=== PATIENT | male | born 1985 | race Caucasian/White ===

== ENCOUNTER 2016-08-23 12:05 | Emergency (ER) | payer OTHER ==
--- NOTE | 2016-08-23 13:44 | DIAGNOSTIC IMAGING REPORT ---
PROCEDURE: XR CHEST 1 VIEW INDICATION: CONGESTION TECHNIQUE: Portable AP view (1305 hours) COMPARISON: None. FINDINGS: Allowing for suboptimal inspiration, lungs are clear. Heart and mediastinum are normal. Thorax is normal. IMPRESSION: 1. Negative chest.
--- NOTE | 2016-08-23 14:39 | DIAGNOSTIC IMAGING REPORT ---
PROCEDURE: XR HAND 1 OR 2 VIEWS BILATERAL INDICATION: CELLULITIS TECHNIQUE: Two views of each hand. COMPARISON: None. FINDINGS: RIGHT HAND: Osseous structures and joint spaces are normal. LEFT HAND: Osseous structures and joint spaces are normal. IMPRESSION: 1. Normal bilateral hands.
--- NOTE | 2016-08-23 16:29 | ED CLINICAL REPORT ---
Clinical Report - Physicians/Mid Levels [facility] [address] [place] [address] 08/23/2016 12:06 Patient: EMA VELAZQUEZ Time Seen: 13:32. Arrived- By private vehicle. Historian- patient. History limited by vague historian and intoxication. Physical Exam limited by intoxication. HISTORY OF PRESENT ILLNESS Chief Complaint: SKIN RASH. This started several weeks ago and is still present and worsening. It was gradual in onset and has been constant. It is described as painful and burning. It has been located on the right upper extremity and left upper extremity. No cause has been identified. REVIEW OF SYSTEMS The patient has had chills and experienced sweats. No calf pain, chest pain, abdominal pain, constipation or diarrhea. No nausea, vomiting or urinary problems. He has had a moderate cough productive of green sputum. All systems otherwise negative, except as recorded above. PAST HISTORY Problems: MRSA Infection. Cellulitis. Abscess. Substance Abuse. Dizziness. Fractured Metacarpal. Fall. Abrasion(s). Lifestyle / Substance Problems. Additional Surgeries: Abscess I&D. Medications: None. Allergies: Vancomycin. (tachycarda, sweating ). SOCIAL HISTORY Occasional alcohol use. History of drug use: heroin, methamphetamines. Recently used drugs days ago. FAMILY HISTORY No significant family medical history. ADDITIONAL NOTES The nursing notes have been reviewed. PHYSICAL EXAM Vital Signs: 08/23/2016 12:30 BP: 138/86. HR: 110. RR: 22. O2 saturation: 95%. Temp: 98.4 F. Pain level now: 7/10. Have been reviewed. Eyes: Pupils equal, round and reactive to light. ENT: Pharynx normal. Neck: Neck supple. No lymphadenopathy. Respiratory: No respiratory distress. (rattle of her large airways that clears with cough). Abdomen: Nontender. No organomegaly. Skin: Large area of cellulitis with tenderness, erythema and warmth to right forearm, right wrist, right hand, right buttock, left forearm, left wrist and left hand. Extremities: No calf tenderness. Neuro: No motor deficit. No sensory deficit. LABS, X-RAYS, AND EKG Chest X-ray: (IMPRESSION: 1. Negative chest.). The X-rays were interpreted by the radiologist and contemporaneously by me. Rt Hand X-ray: Soft tissue swelling. The X-rays were independently viewed by me. Lt Hand X-ray: Soft tissue swelling. The X-rays were independently viewed by me. Laboratory Tests: CBC w Diff: (KASIA: 08/23/2016 15:00) ( [facility] 08/23/2016 15:53) Final results Test Result Flag Units (Reference) WHITE BLOOD COUNT 11.6 H K/uL (4.5-11.5) RED BLOOD COUNT 4.22 L M/uL (4.50-5.90) HEMOGLOBIN 12.4 L gm/dL (13.5-17.5) HEMATOCRIT 36.9 L % (41.0-53.0) MEAN CELL VOLUME 88 fL (80-100) MEAN CORPUSCULAR HGB 30 pg (26-34) MEAN CORPUSCULAR HGB CONC 34 g/dL (31-37) RED CELL DISTRIBUTION WIDTH 13.4 % (11.6-14.8) PLATELET COUNT 232 K/uL (150-400) NEUTROPHIL % 65.3 % (50-75) LYMPH % 21.8 L % (25-40) MONO % 9.6 % (3-14) EOSINOPHIL % 2.6 % (0-4) BASOPHIL % 0.7 % (0-2) Lactate, Serum: (KASIA: 08/23/2016 15:15) ( [facility] 08/23/2016 16:07) Final results Test Result Flag Units (Reference) LACTIC ACID 0.7 mmol/L (0.4-2.0) BMP: (KASIA: 08/23/2016 15:00) ( [facility] 08/23/2016 15:32) Final results Test Result Flag Units (Reference) GLUCOSE 101 mg/dL (70-110) BUN 14 mg/dL (7-18) CREATININE 0.8 mg/dL (0.6-1.3) Estimated GFR >60 mL/min Estimated GFR- >60 mL/min Note: Persistent reduction over 3 months in eGFR<60 mL/min/1.73 m2 defines CKD. Patients with eGFR values>=60 mL/min/1.73 m2 may also have CKD if evidence ofpersistent proteinuria. Additional information may be foundat www.kidney.org. SODIUM 140 mmol/L (136-145) POTASSIUM 3.9 mmol/L (3.5-5.1) CHLORIDE 102 mmol/L (98-107) CARBON DIOXIDE 33 H mmol/L (21-32) CALCIUM 8.2 L mg/dL (8.5-10.1) Rapid Influenza Screen: (KASIA: 08/23/2016 13:00) ( MsgRcvd 08/23/2016 13:31) Final results SPECIMEN DESCRIPTION: NASAL Test Result Flag Units (Reference) RAPID INFLUENZA SCREEN DATE: 08/23/16 INFLUENZA A: NEGATIVE SCREEN FOR INFLUENZA A INFLUENZA B: NEGATIVE SCREEN FOR INFLUENZA B . PROGRESS AND PROCEDURES Course of Care: Patient is stable. Patient/family counseled. Old medical records reviewed. Disposition: Discharged. Condition: stable. CLINICAL IMPRESSION Bronchitis. Cellulitis of the right forearm, right wrist, right hand, right hip, left forearm, left wrist and left hand. INSTRUCTIONS Warnings: Further evaluation is necessary. GENERAL WARNINGS: Return or contact your physician immediately if your condition worsens or changes unexpectedly, if not improving as expected, or if other problems arise. Prescription Medications: Bactrim DS 800 mg / 160 mg: take 2 tablets orally every 12 hours for 10 days. No refill. Substitution is permissible. Understanding of the discharge instructions verbalized by patient. Follow-up with: [facility], , , [address], , [place], [address] Follow up tomorrow. Call for an appointment. (Electronically signed by Mariano Mansfield MD 08/28/2016 18:18) Addenda for EMA VELAZQUEZ VisitID: [id number] Date: 08/23/2016 08/23/2016 12:17 1210 pt out smoking, not in waiting room when called (Electronically signed by StanleyDeandra R.N. - 08/23/2016 12:17)
--- NOTE | 2016-08-23 16:29 | ED CLINICAL REPORT ---
Clinical Report - Physicians/Mid Levels [facility] [address] [place] [address] 08/23/2016 12:06 Patient: EMA VELAZQUEZ Time Seen: 13:32. Arrived- By private vehicle. Historian- patient. History limited by vague historian and intoxication. Physical Exam limited by intoxication. HISTORY OF PRESENT ILLNESS Chief Complaint: SKIN RASH. This started several weeks ago and is still present and worsening. It was gradual in onset and has been constant. It is described as painful and burning. It has been located on the right upper extremity and left upper extremity. No cause has been identified. REVIEW OF SYSTEMS The patient has had chills and experienced sweats. No calf pain, chest pain, abdominal pain, constipation or diarrhea. No nausea, vomiting or urinary problems. He has had a moderate cough productive of green sputum. All systems otherwise negative, except as recorded above. PAST HISTORY Problems: MRSA Infection. Cellulitis. Abscess. Substance Abuse. Dizziness. Fractured Metacarpal. Fall. Abrasion(s). Lifestyle / Substance Problems. Additional Surgeries: Abscess I&D. Medications: None. Allergies: Vancomycin. (tachycarda, sweating ). SOCIAL HISTORY Occasional alcohol use. History of drug use: heroin, methamphetamines. Recently used drugs days ago. FAMILY HISTORY No significant family medical history. ADDITIONAL NOTES The nursing notes have been reviewed. PHYSICAL EXAM Vital Signs: 08/23/2016 12:30 BP: 138/86. HR: 110. RR: 22. O2 saturation: 95%. Temp: 98.4 F. Pain level now: 7/10. Have been reviewed. Eyes: Pupils equal, round and reactive to light. ENT: Pharynx normal. Neck: Neck supple. No lymphadenopathy. Respiratory: No respiratory distress. (rattle of her large airways that clears with cough). Abdomen: Nontender. No organomegaly. Skin: Large area of cellulitis with tenderness, erythema and warmth to right forearm, right wrist, right hand, right buttock, left forearm, left wrist and left hand. Extremities: No calf tenderness. Neuro: No motor deficit. No sensory deficit. LABS, X-RAYS, AND EKG Chest X-ray: (IMPRESSION: 1. Negative chest.). The X-rays were interpreted by the radiologist and contemporaneously by me. Rt Hand X-ray: Soft tissue swelling. The X-rays were independently viewed by me. Lt Hand X-ray: Soft tissue swelling. The X-rays were independently viewed by me. Laboratory Tests: CBC w Diff: (KASIA: 08/23/2016 15:00) ( [facility] 08/23/2016 15:53) Final results Test Result Flag Units (Reference) WHITE BLOOD COUNT 11.6 H K/uL (4.5-11.5) RED BLOOD COUNT 4.22 L M/uL (4.50-5.90) HEMOGLOBIN 12.4 L gm/dL (13.5-17.5) HEMATOCRIT 36.9 L % (41.0-53.0) MEAN CELL VOLUME 88 fL (80-100) MEAN CORPUSCULAR HGB 30 pg (26-34) MEAN CORPUSCULAR HGB CONC 34 g/dL (31-37) RED CELL DISTRIBUTION WIDTH 13.4 % (11.6-14.8) PLATELET COUNT 232 K/uL (150-400) NEUTROPHIL % 65.3 % (50-75) LYMPH % 21.8 L % (25-40) MONO % 9.6 % (3-14) EOSINOPHIL % 2.6 % (0-4) BASOPHIL % 0.7 % (0-2) Lactate, Serum: (KASIA: 08/23/2016 15:15) ( [facility] 08/23/2016 16:07) Final results Test Result Flag Units (Reference) LACTIC ACID 0.7 mmol/L (0.4-2.0) BMP: (KASIA: 08/23/2016 15:00) ( [facility] 08/23/2016 15:32) Final results Test Result Flag Units (Reference) GLUCOSE 101 mg/dL (70-110) BUN 14 mg/dL (7-18) CREATININE 0.8 mg/dL (0.6-1.3) Estimated GFR >60 mL/min Estimated GFR- >60 mL/min Note: Persistent reduction over 3 months in eGFR<60 mL/min/1.73 m2 defines CKD. Patients with eGFR values>=60 mL/min/1.73 m2 may also have CKD if evidence ofpersistent proteinuria. Additional information may be foundat www.kidney.org. SODIUM 140 mmol/L (136-145) POTASSIUM 3.9 mmol/L (3.5-5.1) CHLORIDE 102 mmol/L (98-107) CARBON DIOXIDE 33 H mmol/L (21-32) CALCIUM 8.2 L mg/dL (8.5-10.1) Rapid Influenza Screen: (KASIA: 08/23/2016 13:00) ( MsgRcvd 08/23/2016 13:31) Final results SPECIMEN DESCRIPTION: NASAL Test Result Flag Units (Reference) RAPID INFLUENZA SCREEN DATE: 08/23/16 INFLUENZA A: NEGATIVE SCREEN FOR INFLUENZA A INFLUENZA B: NEGATIVE SCREEN FOR INFLUENZA B . PROGRESS AND PROCEDURES Course of Care: Patient is stable. Patient/family counseled. Old medical records reviewed. Disposition: Discharged. Condition: stable. CLINICAL IMPRESSION Bronchitis. Cellulitis of the right forearm, right wrist, right hand, right hip, left forearm, left wrist and left hand. INSTRUCTIONS Warnings: Further evaluation is necessary. GENERAL WARNINGS: Return or contact your physician immediately if your condition worsens or changes unexpectedly, if not improving as expected, or if other problems arise. Prescription Medications: Bactrim DS 800 mg / 160 mg: take 2 tablets orally every 12 hours for 10 days. No refill. Substitution is permissible. Understanding of the discharge instructions verbalized by patient. Follow-up with: [facility], , , [address], , [place], [address] Follow up tomorrow. Call for an appointment. (Electronically signed by Mariano Mansfield MD 08/28/2016 18:18) Addenda for EMA VELAZQUEZ VisitID: [id number] Date: 08/23/2016 08/23/2016 12:17 1210 pt out smoking, not in waiting room when called (Electronically signed by StanleyDeandra R.N. - 08/23/2016 12:17)
--- NOTE | 2016-08-23 16:29 | ED ORDER SUMMARY ---
..... Patient: EMA VELAZQUEZ OrderSheet [facility] VisitID: [id number] [place] [address] 31y, M Registration Date/Time: 08/23/2016 ORDER SHEET Weight: 58.9 kg (stated) Allergies: Vancomycin GENERAL ORDERS: Rapid Influenza Screen (Nasal Pharyngeal) (nasal) Urgent (13:02 08/23/2016 DDean R.N. per protocol) (Ack 13:13 NHouse ER Tech1) (13:27 DDean R.N.) Chest 1V Urgent (13:02 08/23/2016 DDean R.N. per protocol) (13:09 NHouse ER Tech1) Hand 2V Bilat Urgent (14:15 08/23/2016 Kim ARANDA) (Ack 14:17 NHouse ER Tech1) (14:43 Lucila) CBC w Diff Urgent (14:15 08/23/2016 Kim ARANDA) (Ack 14:17 NHouse ER Tech1) (15:19 DDean R.N.) UA-Culture if indicated Urgent (14:15 08/23/2016 Kim ARANDA) (Ack 14:17 NHouse ER Tech1) (16:25 DDean R.N.) BMP Urgent (14:15 08/23/2016 Kim ARANDA) (Ack 14:17 NHouse ER Tech1) (15:19 DDean R.N.) Urine Drug Screen Urgent (14:15 08/23/2016 Kim ARANDA) (Ack 14:17 NHouse ER Tech1) (16:25 DDean R.N.) Lactate, Serum Urgent (14:15 08/23/2016 Kim ARANDA) (Ack 14:17 NHouse ER Tech1) (15:19 DDean R.N.) Blood Culture (No) (N/A) Urgent (14:16 08/23/2016 Kim ARANDA) (Ack 14:18 NHouse ER Tech1) (15:19 DDean R.N.) PT with INR Urgent (15:31 08/23/2016 Kim ARANDA) (Ack 15:34 NHouse ER Tech1) (16:13 NHouse ER Tech1) PTT Urgent (15:31 08/23/2016 Kim ARANDA) (Ack 15:34 NHouse ER Tech1) (16:13 NHouse ER Tech1) MEDICATION ORDERS: Nicoderm Topical 21 mg (NOW) (15:51 08/23/2016 DDean R.N. per protocol) (15:52 DDean R.N.) Bactrim DS PO (Tablet 800-160 mg) 2 tabs (NOW) (17:28 08/23/2016 DDean R.N. per protocol) (17:29 DDean R.N.) IV FLUIDS: IV Saline Lock (14:15 08/23/2016 Kim ARANDA) (Ack 14:16 DDean R.N.) (15:22 JSimbeck R.N.) IV NS : initial bolus none -, then 1000 mL/hr for X2 (NOW) (15:51 08/23/2016 DDean R.N. per protocol) (15:52 DDean R.N.) ORDER SHEET NOTES: [Electronically signed by Deandra Angel R.N. (19:15 08/23/2016)] [Electronically signed by Mariano Mansfield MD (18:18 08/28/2016)] [Electronically locked/signed by Deandra Angel R.N. (19:15 08/23/2016)]
--- NOTE | 2016-08-23 16:29 | ED NURSING NOTES ---
Clinical Report - Nurses [facility] [address] [place] [address] 08/23/2016 12:06 Patient: EMA VELAZQUEZ TRIAGE Triage time 1230. Acuity: LEVEL 3. Chief Complaint: (Pt in c/o bumps to arms and hands, also c/o general body rash and mead itching. also has bump on rt buttock. Pt also got out of detention 3 weeks ago and has had cough with greenish sputum since then). MANOJ COMA SCORE: Manoj Coma Scale: 15- eyes open spontaneously (4); best verbal response- oriented x 4 (5); best motor response- obeys commands (6). --12:54 Deandra Angel R.N. 12:30 08/23/16. BP: 138/86. HR: 110. RR: 22. O2 saturation: 95% on room air. Temp: 98.4 F. Pain level now: 02/22. --12:54 Deandra Angel R.N. Weight: 58.9 kg stated. Height/Length: 66 inches Per Patient. BMI: 21. --12:53 Deandra Angel R.N. Medications None. --12:50 Deandra Angel R.N. Allergies Vancomycin. (tachycarda, sweating ) --12:50 Deandra Angel R.N. History Arrived by private vehicle. Historian: patient. Unaccompanied. No primary care physician. The patient has had weakness, a cough and skin rash. Reports muscle aches. ( also states he wants to get on some antidepressants). SOCIAL HX: Occasional alcohol use. (none recently). History of drug use: heroin, methamphetamines. (4 days). --12:54 Deandra Angel R.N. PROBLEMS: MRSA Infection. Cellulitis. Abscess. Substance Abuse. Dizziness. Fractured Metacarpal. Lifestyle / Substance Problems. --12:52 Stanley, Deandra, R.N. ADDITIONAL SURGERIES: Abscess I&D. --12:52 Deandra Angel R.N. Interventions ID band on patient. To treatment room. --12:54 Deandra Angel R.N. PHYSICAL ASSESSMENT 12:30. Ambulatory to room. Patient gowned. GENERAL / NEURO / PSYCH: Oriented X 4. ( drowsy). RESPIRATORY: The patient can speak in full sentences. Cough. CVS: Capillary refill less than 2 seconds. SKIN: ( pt has redness to hands, wounds/bumps in various stages on hands). --12:56 Deandra Angel R.N. NURSING PROGRESS NOTES 12:30. Patient gowned. Reassurance given. Patient identifiers checked. Call light placed in reach. Side rails up. Bed placed in lowest position. Brakes of bed on. Patient ready for evaluation- chart flagged. --12:55 Deandra Angel R.N. 13:08/23/16. Patient ID band checked for patient name and birthdate: patient confirmed. Flu swab obtained by RN via nasal swab. Labeled in the presence of the patient and sent to lab. --13:05 Deandra Angel R.N. 13:08/23/16. Portable chest x-ray ordered, performed and shown to the SHIPPING WEIGHER. --13:09 Deandra Angel R.N. 14:20. ( pt dozing off and on, attempted IV without success. lab called for blood draw, ERMD notified). --14:31 Deandra Angel R.N. 14:08/23/16. ( Port x-ray here for bilateral hand films). --14:31 Deandra Angel R.N. 15:08/23/2016 Site #1 started via IV in the right upper arm with an 20g angiocath, with aseptic technique and good blood return; one attempt. Blood drawn: rainbow set. Labeled in the presence of the patient and sent to the lab. Saline lock flushed with 10 mL saline. --15:22 Burton Arauz R.N. 15:37 08/23/2016 NICODERM Topical Patch/Pad 21 mg. Applied to the left upper back. --15:52 Deandra Angel R.N. 15:42 08/23/2016 Started bag #1 1000 mL IV Fluids IV NS (Saline); at 1000 mL/hr over 1 hour(s) via site #1 via IV pump. IV patency established. IV site checked: no pain, redness, or swelling. IV flushed thoroughly pre- and post-medication administration. --15:52 Deandra Angel R.N. 15:05 lab drawn after multliple attempts by lab and EDRN x3 - 30 min time spent. --15:54 Deandra Angel R.N. 15:30. ( IV fluids given, pt given instructions and equipment for UA, pt still very groggy, non-cooperative). --15:55 Deandra Angel R.N. 15:56 08/23/16. ( lab notified of additional tests, lab unable to get additional blood for test). --15:56 Deandra Angel R.N. 16:10. ( additional blood drawn by Burton Lepe , sent to lab). --16:24 Deandra Angel R.N. 16:15. ( Pt stood at bedside, unsteady on feet. 250cc dark eliana urine voided, UA sent to lab. Pt given po food and fluid per ERMD approval). --16:25 Deandra Angel R.N. 17:10 08/23/2016 Site #1 removed upon discharge. Bandaid applied. --17:30 Deandra Angel R.N. 17:10 08/23/2016 IV Fluids IV NS Discontinued: bag #1 infused upon discharge. Total amount infused: 1000 mL. IV patency established. IV site checked: no pain, redness, or swelling. IV flushed thoroughly. --17:28 Deandra Angel R.N. 17:10 08/23/2016 IV Saline Lock Drip IV Discontinued: bag #1 infused upon discharge. Total amount infused: 1000 mL. IV patency established. IV site checked: no pain, redness, or swelling. IV flushed thoroughly. --17:30 Deandra Angel R.N. 17:15 08/23/2016 Bactrim DS (Sulfamethoxazole-TMP DS) PO Oral Suspension 2 tab given. Allergies verified and confirmed 5 rights. --17:29 Deandra Angel R.N. 17:20. ( pt given additional food. pt given instructions on warm night shelters. IV dc'd attempting to get pt to leave room). --17:37 Deandra Angel R.N. 17:30. ( Pt given dc instructions. finishing up po food and getting dressed slowly prior to leaving). --19:12 Deandra Angel R.N. DISPOSITION / DISCHARGE Condition at departure: improved and stable. No learning barriers present. Discharge instructions provided and reviewed with the patient. Reviewed medication(s) (bactrim). Reviewed referrals ([facility] tomorrow for recheck). Patient verbalized understanding. Written instructions provided in Andorran. The patient was discharged home. He left the Emergency Department ambulatory and via (walked). --17:35 Deandra Angel R.N. 17:20 08/23/16. BP: 128/72. HR: 96. RR: 20. O2 saturation: 97% on room air. Temp: deferred. Pain level now: 02/22. --17:35 Deandra Angel R.N. Departure time: 1800. --19:12 Deandra Angel R.N. Locked/Released at 08/23/2016 19:15 by Deandra Angel R.N.
--- NOTE | 2016-08-23 16:29 | ED ORDER SUMMARY ---
..... Patient: EMA VELAZQUEZ OrderSheet [facility] VisitID: [id number] [place] [address] 31y, M Registration Date/Time: 08/23/2016 ORDER SHEET Weight: 58.9 kg (stated) Allergies: Vancomycin GENERAL ORDERS: Rapid Influenza Screen (Nasal Pharyngeal) (nasal) Urgent (13:02 08/23/2016 DDean R.N. per protocol) (Ack 13:13 NHouse ER Tech1) (13:27 DDean R.N.) Chest 1V Urgent (13:02 08/23/2016 DDean R.N. per protocol) (13:09 NHouse ER Tech1) Hand 2V Bilat Urgent (14:15 08/23/2016 Kim ARANDA) (Ack 14:17 NHouse ER Tech1) (14:43 Lucila) CBC w Diff Urgent (14:15 08/23/2016 Kim ARANDA) (Ack 14:17 NHouse ER Tech1) (15:19 DDean R.N.) UA-Culture if indicated Urgent (14:15 08/23/2016 Kim ARANDA) (Ack 14:17 NHouse ER Tech1) (16:25 DDean R.N.) BMP Urgent (14:15 08/23/2016 Kim ARANDA) (Ack 14:17 NHouse ER Tech1) (15:19 DDean R.N.) Urine Drug Screen Urgent (14:15 08/23/2016 Kim ARANDA) (Ack 14:17 NHouse ER Tech1) (16:25 DDean R.N.) Lactate, Serum Urgent (14:15 08/23/2016 Kim ARANDA) (Ack 14:17 NHouse ER Tech1) (15:19 DDean R.N.) Blood Culture (No) (N/A) Urgent (14:16 08/23/2016 Kim ARANDA) (Ack 14:18 NHouse ER Tech1) (15:19 DDean R.N.) PT with INR Urgent (15:31 08/23/2016 Kim ARANDA) (Ack 15:34 NHouse ER Tech1) (16:13 NHouse ER Tech1) PTT Urgent (15:31 08/23/2016 Kim ARANDA) (Ack 15:34 NHouse ER Tech1) (16:13 NHouse ER Tech1) MEDICATION ORDERS: Nicoderm Topical 21 mg (NOW) (15:51 08/23/2016 DDean R.N. per protocol) (15:52 DDean R.N.) Bactrim DS PO (Tablet 800-160 mg) 2 tabs (NOW) (17:28 08/23/2016 DDean R.N. per protocol) (17:29 DDean R.N.) IV FLUIDS: IV Saline Lock (14:15 08/23/2016 Kim ARANDA) (Ack 14:16 DDean R.N.) (15:22 JSimbeck R.N.) IV NS : initial bolus none -, then 1000 mL/hr for X2 (NOW) (15:51 08/23/2016 DDean R.N. per protocol) (15:52 DDean R.N.) ORDER SHEET NOTES: [Electronically signed by Deandra Angel R.N. (19:15 08/23/2016)] [Electronically signed by Mariano Mansfield MD (18:18 08/28/2016)] [Electronically locked/signed by Deandra Angel R.N. (19:15 08/23/2016)]
--- NOTE | 2016-08-23 16:29 | ED NURSING NOTES ---
Clinical Report - Nurses [facility] [address] [place] [address] 08/23/2016 12:06 Patient: EMA VELAZQUEZ TRIAGE Triage time 1230. Acuity: LEVEL 3. Chief Complaint: (Pt in c/o bumps to arms and hands, also c/o general body rash and mead itching. also has bump on rt buttock. Pt also got out of [facility] 3 weeks ago and has had cough with greenish sputum since then). MANOJ COMA SCORE: Manoj Coma Scale: 15- eyes open spontaneously (4); best verbal response- oriented x 4 (5); best motor response- obeys commands (6). --12:54 Deandra Angel R.N. 12:30 08/23/16. BP: 138/86. HR: 110. RR: 22. O2 saturation: 95% on room air. Temp: 98.4 F. Pain level now: 02/22. --12:54 Deandra Angel R.N. Weight: 58.9 kg stated. Height/Length: 66 inches Per Patient. BMI: 21. --12:53 Deandra Angel R.N. Medications None. --12:50 Deandra Angel R.N. Allergies Vancomycin. (tachycarda, sweating ) --12:50 Deandra Angel R.N. History Arrived by private vehicle. Historian: patient. Unaccompanied. No primary care physician. The patient has had weakness, a cough and skin rash. Reports muscle aches. ( also states he wants to get on some antidepressants). SOCIAL HX: Occasional alcohol use. (none recently). History of drug use: heroin, methamphetamines. (4 days). --12:54 Deandra Angel R.N. PROBLEMS: MRSA Infection. Cellulitis. Abscess. Substance Abuse. Dizziness. Fractured Metacarpal. Lifestyle / Substance Problems. --12:52 Stanley, Deandra, R.N. ADDITIONAL SURGERIES: Abscess I&D. --12:52 Deandra Angel R.N. Interventions ID band on patient. To treatment room. --12:54 Deandra Angel R.N. PHYSICAL ASSESSMENT 12:30. Ambulatory to room. Patient gowned. GENERAL / NEURO / PSYCH: Oriented X 4. ( drowsy). RESPIRATORY: The patient can speak in full sentences. Cough. [facility]: Capillary refill less than 2 seconds. SKIN: ( pt has redness to hands, wounds/bumps in various stages on hands). --12:56 Deandra Angel R.N. NURSING PROGRESS NOTES 12:30. Patient gowned. Reassurance given. Patient identifiers checked. Call light placed in reach. Side rails up. Bed placed in lowest position. Brakes of bed on. Patient ready for evaluation- chart flagged. --12:55 Deandra Angel R.N. 13:08/23/16. Patient ID band checked for patient name and birthdate: patient confirmed. Flu swab obtained by RN via nasal swab. Labeled in the presence of the patient and sent to lab. --13:05 Deandra Angel R.N. 13:08/23/16. Portable chest x-ray ordered, performed and shown to the DOWEL PIN WORKER. --13:09 Deandra Angel R.N. 14:20. ( pt dozing off and on, attempted IV without success. lab called for blood draw, ERMD notified). --14:31 Deandra Angel R.N. 14:08/23/16. ( Port x-ray here for bilateral hand films). --14:31 Deandra Angel R.N. 15:08/23/2016 Site #1 started via IV in the right upper arm with an 20g angiocath, with aseptic technique and good blood return; one attempt. Blood drawn: rainbow set. Labeled in the presence of the patient and sent to the lab. Saline lock flushed with 10 mL saline. --15:22 Burton Arauz R.N. 15:37 08/23/2016 NICODERM Topical Patch/Pad 21 mg. Applied to the left upper back. --15:52 Deandra Angel R.N. 15:42 08/23/2016 Started bag #1 1000 mL IV Fluids IV NS (Saline); at 1000 mL/hr over 1 hour(s) via site #1 via IV pump. IV patency established. IV site checked: no pain, redness, or swelling. IV flushed thoroughly pre- and post-medication administration. --15:52 Deandra Angel R.N. 15:05 lab drawn after multliple attempts by lab and EDRN x3 - 30 min time spent. --15:54 Deandra Angel R.N. 15:30. ( IV fluids given, pt given instructions and equipment for UA, pt still very groggy, non-cooperative). --15:55 Deandra Angel R.N. 15:56 08/23/16. ( lab notified of additional tests, lab unable to get additional blood for test). --15:56 Deandra Angel R.N. 16:10. ( additional blood drawn by Burton Lepe , sent to lab). --16:24 Deandra Angel R.N. 16:15. ( Pt stood at bedside, unsteady on feet. 250cc dark eliana urine voided, UA sent to lab. Pt given po food and fluid per ERMD approval). --16:25 Deandra Angel R.N. 17:10 08/23/2016 Site #1 removed upon discharge. Bandaid applied. --17:30 eDandra Angel R.N. 17:10 08/23/2016 IV Fluids IV NS Discontinued: bag #1 infused upon discharge. Total amount infused: 1000 mL. IV patency established. IV site checked: no pain, redness, or swelling. IV flushed thoroughly. --17:28 Deandra Angel R.N. 17:10 08/23/2016 IV Saline Lock Drip IV Discontinued: bag #1 infused upon discharge. Total amount infused: 1000 mL. IV patency established. IV site checked: no pain, redness, or swelling. IV flushed thoroughly. --17:30 Deandra Angel R.N. 17:15 08/23/2016 Bactrim DS (Sulfamethoxazole-TMP DS) PO Oral Suspension 2 tab given. Allergies verified and confirmed 5 rights. --17:29 Deandra Angel R.N. 17:20. ( pt given additional food. pt given instructions on warm night shelters. IV dc'd attempting to get pt to leave room). --17:37 Deandra Angel R.N. 17:30. ( Pt given dc instructions. finishing up po food and getting dressed slowly prior to leaving). --19:12 Deandra Angel R.N. DISPOSITION / DISCHARGE Condition at departure: improved and stable. No learning barriers present. Discharge instructions provided and reviewed with the patient. Reviewed medication(s) (bactrim). Reviewed referrals ([facility] tomorrow for recheck). Patient verbalized understanding. Written instructions provided in Dutch. The patient was discharged home. He left the Emergency Department ambulatory and via (walked). --17:35 Deandra Angel R.N. 17:20 08/23/16. BP: 128/72. HR: 96. RR: 20. O2 saturation: 97% on room air. Temp: deferred. Pain level now: 02/22. --17:35 Deandra Angel R.N. Departure time: 1800. --19:12 Deandra Angel R.N. Locked/Released at 08/23/2016 19:15 by Deandra Angel R.N.
--- NOTE | 2016-08-28 18:18 | ED DISCHARGE INSTRUCTIONS ---
Patient: EMA VELAZQUEZ General Instructions [facility] VisitID: [id number] [address] [place] [address] 31y, M Registration Date/Time: 08/23/2016 Bronchitis. Cellulitis of the right forearm, right wrist, right hand, right hip, left forearm, left wrist and left hand. INSTRUCTIONS Warnings: Further evaluation is necessary. GENERAL WARNINGS: Return or contact your physician immediately if your condition worsens or changes unexpectedly, if not improving as expected, or if other problems arise. Prescription Medications: Bactrim DS 800 mg / 160 mg: take 2 tablets orally every 12 hours for 10 days. No refill. Substitution is permissible. Understanding of the discharge instructions verbalized by patient. Follow-up with: [facility] , , [address], , [place], [id number] Follow up tomorrow. Call for an appointment. ADDITIONAL INFORMATION Cellulitis You have an infection of the skin known as cellulitis. This usually starts with a scrape, cut, insect bite, blister or other opening in the skin which becomes infected. This is a serious condition. It must be watched closely to be sure the infection is not spreading. With antibiotic treatment, the size of the red area will gradually shrink in size until the skin returns to normal. This will take 7-10 days. The red area should never increase in size once the antibiotic medicine has been started. Occasionally, an infection will be resistant to one antibiotic and another one will have to be used. Home Care: 1) Limit the use of the affected part, since excess movement can cause the infection to spread. 2) If the infection is on your leg, walk as little as possible during the first few days of the treatment. Keep your leg elevated while sitting. This will reduce swelling. 3) Take all of the antibiotic medicine exactly as directed until it is gone. Be careful not to miss any doses, especially during the first seven days. Follow Up with your doctor or this facility as directed. Check the infected area daily for the warning signs listed below. Get Prompt Medical Attention if any of the following occur: -- Spreading area of redness -- Increasing swelling or pain -- Appearance of pus or drainage -- Fever over 100.4 F (38.0 C) oral, or over 101.4 F (38.6 C) rectal, after two days on antibiotics Bronchitis (Adult: Abx Tx) BRONCHITIS is an infection of the air passages (bronchial tubes). It often occurs during the common cold. Symptoms include cough with mucus (phlegm) and low-grade fever. Bronchitis usually lasts 7-14 days. Mild cases can be treated with simple home remedies. More severe infection is treated with an antibiotic. Home Care: If symptoms are severe, rest at home for the first 2-3 days. When you resume activity, don't let yourself get too tired. Do not smoke. Avoid being exposed to the smoke of others. You may use acetaminophen (Tylenol) or ibuprofen (Motrin, Advil) to control fever or pain, unless another medicine was prescribed for this. [NOTE: If you have chronic liver or kidney disease or ever had a stomach ulcer or GI bleeding, talk with your doctor before using these medicines.] Your appetite may be poor, so a light diet is fine. Avoid dehydration by drinking 6-8 glasses of fluids per day (water, soft, drinks, juices, tea, soup, etc.). Extra fluids will help loosen secretions in the lungs. Wtia-soi-vfhvqxz cough medicines that containdextromethorphan(such as Robitussin DM) and decongestants (Actifed or Sudafed) may help relieve cough and congestion. [NOTE: Do not use decongestants if you have high blood pressure.] Finish all antibiotic medicine, even if you are feeling better after only a few days. Follow Up with your doctor or as directed if you dont start to feel better after three days. [NOTE: If you are age 65 or older, or if you have chronic asthma or COPD, we recommend a PNEUMOCOCCAL VACCINATION every five years and a yearly INFLUENZAVACCINATION (FLU-SHOT) every . Ask your doctor about this. If you had an X-ray, a radiologist will review it. You will be notified of any new findings that may affect your care.] Get Prompt Medical Attention if any of the following occur: Fever over 100.4F (38.0C) for more than three days Trouble breathing, wheezing or pain with breathing Coughing up blood or increased amounts of colored sputum Weakness, drowsiness, headache, facial pain, ear pain or a stiff neck Sulfamethoxazole, Trimethoprim Oral tablet What is this medicine? SULFAMETHOXAZOLE; TRIMETHOPRIM or SMX-TMP (suhl fuh meth OK sri zohl; trye METH oh prim) is a combination of a sulfonamide antibiotic and a second antibiotic, trimethoprim. It is used to treat or prevent certain kinds of bacterial infections. It will not work for colds, flu, or other viral infections. How should I use this medicine? Take this medicine by mouth with a full glass of water. Follow the directions on the prescription label. Take your medicine at regular intervals. Do not take it more often than directed. Do not skip doses or stop your medicine early. Talk to your plow holder regarding the use of this medicine in children. Special care may be needed. This medicine has been used in children as young as 2 months of age. What side effects may I notice from receiving this medicine? Side effects that you should report to your doctor or health animal care service worker as soon as possible: allergic reactions like skin rash or hives, swelling of the face, lips, or tongue breathing problems fever or chills, sore throat irregular heartbeat, chest pain joint or muscle pain pain or difficulty passing urine red pinpoint spots on skin redness, blistering, peeling or loosening of the skin, including inside the mouth unusual bleeding or bruising unusually weak or tired yellowing of the eyes or skin Side effects that usually do not require medical attention (report to your doctor or health animal care service worker if they continue or are bothersome): diarrhea dizziness headache loss of appetite nausea, vomiting nervousness What may interact with this medicine? Do not take this medicine with any of the following medications: aminobenzoate potassium dofetilide metronidazole This medicine may also interact with the following medications: SPENCER inhibitors like benazepril, enalapril, lisinopril, and ramipril cyclosporine digoxin diuretics indomethacin medicines for diabetes methenamine methotrexate phenytoin potassium supplements pyrimethamine sulfinpyrazone tricyclic antidepressants warfarin What if I miss a dose? If you miss a dose, take it as soon as you can. If it is almost time for your next dose, take only that dose. Do not take double or extra doses. Where should I keep my medicine? Keep out of the reach of children. Store at room temperature between 20 to 25 degrees C (68 to 77 degrees F). Protect from light. Throw away any unused medicine after the expiration date. What should I tell my health care provider before I take this medicine? They need to know if you have any of these conditions: anemia asthma being treated with anticonvulsants if you frequently drink alcohol containing drinks kidney disease liver disease low level of folic acid or oziipqd-5-eyhvhgsvj dehydrogenase poor nutrition or malabsorption porphyria severe allergies thyroid disorder an unusual or allergic reaction to sulfamethoxazole, trimethoprim, sulfa drugs, other medicines, foods, dyes, or preservatives or trying to get breast-feeding What should I watch for while using this medicine? Tell your doctor or health animal care service worker if your symptoms do not improve. Drink several glasses of water a day to reduce the risk of kidney problems. Do not treat diarrhea with over the counter products. Contact your doctor if you have diarrhea that lasts more than 2 days or if it is severe and watery. This medicine can make you more sensitive to the sun. Keep out of the sun. If you cannot avoid being in the sun, wear protective clothing and use a sunscreen. Do not use sun lamps or tanning beds/booths. You have been given the following additional information: Cellulitis Bronchitis, Antiobiotic Treatment (Adult) Sulfamethoxazole, Trimethoprim Oral tablet (Electronically signed by Mariano Mansfield MD 08/28/2016 18:18)
--- NOTE | 2016-08-28 18:18 | ED MED RECONCILIATION SUMMARY ---
Patient: EMA VELAZQUEZ Medication Reconciliation Report [facility] VisitID: [id number] [address] [place] [address] 31y, M Registration Date/Time: 08/23/2016 Weight: 58.9 kg Height/Length: 66 in. BMI: 21.0 ALLERGIES: Vancomycin The patient's Home Medications are listed below: NONE. The source(s) of the original Home Medication information: Not obtained. The following Medications were given to the patient in the Emergency Department: NICODERM [TOPICAL] Topical 21 mg, administered: 08/23/2016 3:37:00 PM IV NS IV Fluids bolus 0, then 1000 mL/hr, administered: 08/23/2016 3:42:00 PM Bactrim DS [PO] PO 2 tab, administered: 08/23/2016 5:15:00 PM The following Medications were prescribed to the patient: Bactrim DS 800 mg / 160 mg: take 2 tablets orally every 12 hours for 10 days. No refill. Substitution is permissible. -- Mariano Mansfield MD
--- NOTE | 2016-08-28 18:18 | ED MAR SUMMARY ---
..... Medication Administration Record [facility] [address] [place] [address] Patient: EMA VELAZQUEZ Visit ID: [id number] 31y, M Weight: 58.9 kg Height/Length: 66 in BMI: 21 ALLERGIES: Vancomycin Given 15:37 08/23/2016 Deandra Angel R.N. Medication Administered: NICODERM [TOPICAL], Dose: 21 mg Patch/Pad Topical. Medication Ordered: Nicoderm Topical 21 mg (NOW). Start 15:42 08/23/2016 Deandra Angel R.N., Stop 17:10 08/23/2016 Deandra Angel R.N. Medication Administered: IV NS (SALINE), Dose: IV Fluids over 1 hour(s), Rate: 1000 mL/hr, Dispensed: 1000 mL bag, Site: #1 right upper arm. Medication Ordered: IV NS : initial bolus none -, then 1000 mL/hr for X2 (NOW). Given 17:15 08/23/2016 Deandra Angel R.NNickolas Medication Administered: BACTRIM DS [PO] (SULFAMETHOXAZOLE-TMP DS), Dose: 2 tab Oral Suspension PO. Medication Ordered: Bactrim DS PO (Tablet 800-160 mg) 2 tabs (NOW).
--- NOTE | 2016-08-28 18:18 | ED MAR SUMMARY ---
..... Medication Administration Record [facility] [address] [place] [address] Patient: EMA VELAZQUEZ Visit ID: [id number] 31y, M Weight: 58.9 kg Height/Length: 66 in BMI: 21 ALLERGIES: Vancomycin Given 15:37 08/23/2016 Deandra Angel R.N. Medication Administered: NICODERM [TOPICAL], Dose: 21 mg Patch/Pad Topical. Medication Ordered: Nicoderm Topical 21 mg (NOW). Start 15:42 08/23/2016 Deandra Angel R.N., Stop 17:10 08/23/2016 Deandra Angel R.N. Medication Administered: IV NS (SALINE), Dose: IV Fluids over 1 hour(s), Rate: 1000 mL/hr, Dispensed: 1000 mL bag, Site: #1 right upper arm. Medication Ordered: IV NS : initial bolus none -, then 1000 mL/hr for X2 (NOW). Given 17:15 08/23/2016 Deandra Angel R.NNickolas Medication Administered: BACTRIM DS [PO] (SULFAMETHOXAZOLE-TMP DS), Dose: 2 tab Oral Suspension PO. Medication Ordered: Bactrim DS PO (Tablet 800-160 mg) 2 tabs (NOW).
--- NOTE | 2016-08-28 18:18 | ED MED RECONCILIATION SUMMARY ---
Patient: EMA VELAZQUEZ Medication Reconciliation Report [facility] VisitID: [id number] [address] [place] [address] 31y, M Registration Date/Time: 08/23/2016 Weight: 58.9 kg Height/Length: 66 in. BMI: 21.0 ALLERGIES: Vancomycin The patient's Home Medications are listed below: NONE. The source(s) of the original Home Medication information: Not obtained. The following Medications were given to the patient in the Emergency Department: NICODERM [TOPICAL] Topical 21 mg, administered: 08/23/2016 3:37:00 PM IV NS IV Fluids bolus 0, then 1000 mL/hr, administered: 08/23/2016 3:42:00 PM Bactrim DS [PO] PO 2 tab, administered: 08/23/2016 5:15:00 PM The following Medications were prescribed to the patient: Bactrim DS 800 mg / 160 mg: take 2 tablets orally every 12 hours for 10 days. No refill. Substitution is permissible. -- Mariano Mansfield MD
--- NOTE | 2016-08-28 18:18 | ED DISCHARGE INSTRUCTIONS ---
Patient: EMA VELAZQUEZ General Instructions [facility] VisitID: [id number] [address] [place] [address] 31y, M Registration Date/Time: 08/23/2016 Bronchitis. Cellulitis of the right forearm, right wrist, right hand, right hip, left forearm, left wrist and left hand. INSTRUCTIONS Warnings: Further evaluation is necessary. GENERAL WARNINGS: Return or contact your physician immediately if your condition worsens or changes unexpectedly, if not improving as expected, or if other problems arise. Prescription Medications: Bactrim DS 800 mg / 160 mg: take 2 tablets orally every 12 hours for 10 days. No refill. Substitution is permissible. Understanding of the discharge instructions verbalized by patient. Follow-up with: [facility], , , [address], , [place], [id number] Follow up tomorrow. Call for an appointment. ADDITIONAL INFORMATION Cellulitis You have an infection of the skin known as cellulitis. This usually starts with a scrape, cut, insect bite, blister or other opening in the skin which becomes infected. This is a serious condition. It must be watched closely to be sure the infection is not spreading. With antibiotic treatment, the size of the red area will gradually shrink in size until the skin returns to normal. This will take 7-10 days. The red area should never increase in size once the antibiotic medicine has been started. Occasionally, an infection will be resistant to one antibiotic and another one will have to be used. Home Care: 1) Limit the use of the affected part, since excess movement can cause the infection to spread. 2) If the infection is on your leg, walk as little as possible during the first few days of the treatment. Keep your leg elevated while sitting. This will reduce swelling. 3) Take all of the antibiotic medicine exactly as directed until it is gone. Be careful not to miss any doses, especially during the first seven days. Follow Up with your doctor or this facility as directed. Check the infected area daily for the warning signs listed below. Get Prompt Medical Attention if any of the following occur: -- Spreading area of redness -- Increasing swelling or pain -- Appearance of pus or drainage -- Fever over 100.4 F (38.0 C) oral, or over 101.4 F (38.6 C) rectal, after two days on antibiotics Bronchitis (Adult: Abx Tx) BRONCHITIS is an infection of the air passages (bronchial tubes). It often occurs during the common cold. Symptoms include cough with mucus (phlegm) and low-grade fever. Bronchitis usually lasts 7-14 days. Mild cases can be treated with simple home remedies. More severe infection is treated with an antibiotic. Home Care: If symptoms are severe, rest at home for the first 2-3 days. When you resume activity, don't let yourself get too tired. Do not smoke. Avoid being exposed to the smoke of others. You may use acetaminophen (Tylenol) or ibuprofen (Motrin, Advil) to control fever or pain, unless another medicine was prescribed for this. [NOTE: If you have chronic liver or kidney disease or ever had a stomach ulcer or GI bleeding, talk with your doctor before using these medicines.] Your appetite may be poor, so a light diet is fine. Avoid dehydration by drinking 6-8 glasses of fluids per day (water, soft, drinks, juices, tea, soup, etc.). Extra fluids will help loosen secretions in the lungs. Ygyy-ssi-lcoplyx cough medicines that containdextromethorphan(such as Robitussin DM) and decongestants (Actifed or Sudafed) may help relieve cough and congestion. [NOTE: Do not use decongestants if you have high blood pressure.] Finish all antibiotic medicine, even if you are feeling better after only a few days. Follow Up with your doctor or as directed if you dont start to feel better after three days. [NOTE: If you are age 65 or older, or if you have chronic asthma or COPD, we recommend a PNEUMOCOCCAL VACCINATION every five years and a yearly INFLUENZAVACCINATION (FLU-SHOT) every . Ask your doctor about this. If you had an X-ray, a radiologist will review it. You will be notified of any new findings that may affect your care.] Get Prompt Medical Attention if any of the following occur: Fever over 100.4F (38.0C) for more than three days Trouble breathing, wheezing or pain with breathing Coughing up blood or increased amounts of colored sputum Weakness, drowsiness, headache, facial pain, ear pain or a stiff neck Sulfamethoxazole, Trimethoprim Oral tablet What is this medicine? SULFAMETHOXAZOLE; TRIMETHOPRIM or SMX-TMP (suhl fuh meth OK sri zohl; trye METH oh prim) is a combination of a sulfonamide antibiotic and a second antibiotic, trimethoprim. It is used to treat or prevent certain kinds of bacterial infections. It will not work for colds, flu, or other viral infections. How should I use this medicine? Take this medicine by mouth with a full glass of water. Follow the directions on the prescription label. Take your medicine at regular intervals. Do not take it more often than directed. Do not skip doses or stop your medicine early. Talk to your septic tank cleaner regarding the use of this medicine in children. Special care may be needed. This medicine has been used in children as young as 2 months of age. What side effects may I notice from receiving this medicine? Side effects that you should report to your doctor or health field care advocate as soon as possible: allergic reactions like skin rash or hives, swelling of the face, lips, or tongue breathing problems fever or chills, sore throat irregular heartbeat, chest pain joint or muscle pain pain or difficulty passing urine red pinpoint spots on skin redness, blistering, peeling or loosening of the skin, including inside the mouth unusual bleeding or bruising unusually weak or tired yellowing of the eyes or skin Side effects that usually do not require medical attention (report to your doctor or health field care advocate if they continue or are bothersome): diarrhea dizziness headache loss of appetite nausea, vomiting nervousness What may interact with this medicine? Do not take this medicine with any of the following medications: aminobenzoate potassium dofetilide metronidazole This medicine may also interact with the following medications: SPENCER inhibitors like benazepril, enalapril, lisinopril, and ramipril cyclosporine digoxin diuretics indomethacin medicines for diabetes methenamine methotrexate phenytoin potassium supplements pyrimethamine sulfinpyrazone tricyclic antidepressants warfarin What if I miss a dose? If you miss a dose, take it as soon as you can. If it is almost time for your next dose, take only that dose. Do not take double or extra doses. Where should I keep my medicine? Keep out of the reach of children. Store at room temperature between 20 to 25 degrees C (68 to 77 degrees F). Protect from light. Throw away any unused medicine after the expiration date. What should I tell my health care provider before I take this medicine? They need to know if you have any of these conditions: anemia asthma being treated with anticonvulsants if you frequently drink alcohol containing drinks kidney disease liver disease low level of folic acid or [id number] dehydrogenase poor nutrition or malabsorption porphyria severe allergies thyroid disorder an unusual or allergic reaction to sulfamethoxazole, trimethoprim, sulfa drugs, other medicines, foods, dyes, or preservatives or trying to get breast-feeding What should I watch for while using this medicine? Tell your doctor or health field care advocate if your symptoms do not improve. Drink several glasses of water a day to reduce the risk of kidney problems. Do not treat diarrhea with over the counter products. Contact your doctor if you have diarrhea that lasts more than 2 days or if it is severe and watery. This medicine can make you more sensitive to the sun. Keep out of the sun. If you cannot avoid being in the sun, wear protective clothing and use a sunscreen. Do not use sun lamps or tanning beds/booths. You have been given the following additional information: Cellulitis Bronchitis, Antiobiotic Treatment (Adult) Sulfamethoxazole, Trimethoprim Oral tablet (Electronically signed by Mariano Mansfield MD 08/28/2016 18:18)
== END 2016-08-23 18:00 | disposition home or self-care (01) ==
LOC: ED SRH 12:05
DX: L03.113 Cellulitis of right upper limb (principal); L03.114 Cellulitis of left upper limb; J40 Bronchitis, not specified as acute or chronic; Z88.1 Allergy status to other antibiotic agents
CPT/HCPCS: 90004; 90047; 90065; 90074; 91400; 92031; 92760; 92761; 92762; 92763; 92764; 92765; 92766; 92767; 94001; 94060; 95059